=== PATIENT | female | born 1970 | race Caucasian/White ===

== ENCOUNTER 2016-12-13 14:17 | Emergency (ER) | payer OTHER ==
[~2016-12-13] VITALS: Ht 165.1 cm; Wt 102.0 kg
[2016-12-13 14:20] VITALS: BP 183/84; PULSE 88; RESP 14; TEMP 98.2; O2SAT 98
--- NOTE | 2016-12-13 14:30 | PD ---
Physical Exam Date Seen by Provider: December 13, 2016 Time Seen by Provider: 14:28 Narrative 46 yo female here for needle stick on left thumb. This happened at work today. Works at [email or web address]. Was told to come here to get checked. No other complaints. Vitals sign stable. Patient awaiting bed placement. Data Data Last Documented VS Vital Signs Date Time Temp Pulse Resp B/P Pulse Ox O2 Delivery O2 Flow Rate FiO2 12/13/16 14:20 98.2 88 14 183/84 98 MDM Medical Record Reviewed: Yes Supervised Visit with JONATAN: Richard Bennett December 13, 2016 14:30
--- NOTE | 2016-12-13 14:53 | PD ---
HPI Chief Complaint: Medical Clearance Time Seen by Provider: 14:39 Travel History International Travel<30 days: No Contact w/Intl Traveler<30days: No Traveled to known affect area: No History of Present Illness HPI 46-year-old female here with complaint of needle stick. Patient was working on her oncology clinic giving a subcutaneous injection. The patient had source blood drawn and sent. This is a 27-gauge subcutaneous needle that appeared clean, accidentally stuck in the thumb. Patient wash with soapy water thereafter. PFSH Past Medical History ?: Not LMP: 11/29/16 Social History Tobacco Use: No Allergies-Medications (Allergen,Severity, Reaction): Coded Allergies: No Known Allergies (Unverified , 12/13/16) Review of Systems Except as stated in HPI: all other systems reviewed are Neg Physical Exam Narrative GENERAL: Well-appearing female in no acute distress SKIN: Focused skin assessment warm/dry. Needle stick to the thumb HEAD:Normocephalic. EYES: No scleral icterus. No injection or drainage. ENT: Mucous membranes pink and moist. CARDIOVASCULAR: Regular rate and rhythm. RESPIRATORY: No accessory muscle use. MUSCULOSKELETAL: Moves all extremities normally, normal gait NEUROLOGICAL: Awake and alert. Normal speech. PSYCHIATRIC: Appropriate mood and affect; insight and judgment normal. Data Data Last Documented VS Vital Signs Date Time Temp Pulse Resp B/P Pulse Ox O2 Delivery O2 Flow Rate FiO2 12/13/16 14:20 98.2 88 14 183/84 98 MDM Medical Decision Making Medical Screen Exam Complete: Yes Emergency Medical Condition: Yes Medical Record Reviewed: Yes Differential Diagnosis 46-year-old female here status post needle stick while at work. This is a small bore needle, and the subcutaneous tissues to a known patient in which we can get source blood. Overall patient is exceedingly low for serial conversion of HIV or hepatitis and I would not recommend prophylaxis. Narrative Course patient was agreeable with this. Her blood was drawn and sent to lab per protocol. Will follow up with employee health. Diagnosis Primary Impression: Needle stick injury Additional Instructions: Follow-up with employee health as instructed. Med/Other Pt SpecificInfo: No Change to Meds Disposition: 01 DISCHARGE HOME Condition: Stable Brittani Browning MD December 13, 2016 14:53
== END 2016-12-13 15:28 | disposition home or self-care (01) ==
LOC: NEPD 14:17
DX: S61.032A Puncture wound without foreign body of left thumb without damage to nail, initial encounter (principal); Z20.9 Contact with and (suspected) exposure to unspecified communicable disease; W46.1XXA Contact with contaminated hypodermic needle, initial encounter; Y93.F9 Activity, other caregiving; Y92.531 Health care provider office as the place of occurrence of the external cause; Y99.0 Civilian activity done for income or pay
CPT/HCPCS: 99282